=== PATIENT | female | born 1965 | race American Indian/Alaskan Native ===

== ENCOUNTER 2016-10-02 20:20 | Emergency (ER) | payer SELFPAY ==
[2016-10-02 23:05] LABS: Basophils % (Auto) 0.5 % (0.0-1.8); Eosinophils % (Auto) 2.4 % (0.0-4.3); Hematocrit 30.5 % (30.3-42.9); Hemoglobin 9.3 gm/dl (10.1-14.3); Mean Corpuscular HGB Conc 31 % (30-34); Platelet Count 282 K/mm3 (140-440); Red Blood Count 4.55 M/mm3 (3.65-5.03); Red Cell Distribution Width 18.6 % (13.2-15.2); White Blood Count 8.5 K/mm3 (4.5-11.0)
[2016-10-02 23:07] LABS: Mean Corpuscular Hemoglobin 20 pg (28-32); Mean Corpuscular Volume 67 fl (79-97)
[2016-10-02 23:23] LABS: Anion Gap 20 mmol/L; BUN/Creatinine Ratio 15.71; Blood Urea Nitrogen 11 mg/dL (7-17); Calcium 9.1 mg/dL (8.4-10.2); Carbon Dioxide 22 mmol/L (22-30); Chloride 99.2 mmol/L (98-107); Glucose 112 mg/dL (65-100); Potassium 3.9 mmol/L (3.6-5.0); Sodium 137 mmol/L (137-145)
[2016-10-02] MEDS ORDERED: ANTIVERT PO ONE (23:55)
--- NOTE | 2016-10-02 23:55 | Emergency Department Report ---
ED Dizziness HPI - General Chief Complaint: Dizziness Stated Complaint: WEAKNESS Time Seen by Provider: 10/02/16 23:40 Source: patient Mode of arrival: Ambulatory Limitations: No Limitations - History of Present Illness Initial Comments: This is a pleasant 51-year-old female who reports long-standing history of intermittent dizziness. She's been seen by ENT for this. She has had vestibular therapy in the past. She states she's only had minimal improvement with this however. She has had MRI recently done as well for part of this workup. She states that she does fairly well on meclizine. She is requesting more meclizine now. She does report occasional blurring of her vision associated with the dizziness as well. Denies any new trauma. She denies any other focal weakness. States that she feels better lying still. Patient reports also having some increased fatigue over the last several weeks. She thinks her iron is low again. She has been on iron replacement in the past. Severity: moderate Associated Symptoms: denies: chest pain, fever/chills, seizure - Related Data Home Medications Medication Instructions Recorded Confirmed Last Taken traMADol [Ultram 50 MG tab] 25 mg PO PRN PRN 07/10/14 07/10/14 07/10/14 Previous Rx's Medication Instructions Recorded Last Taken Type Lisinopril 10 mg PO QDAY #30 tablet 07/10/14 Unknown Rx Iron,Carbonyl/Ascorbic Acid [Iron 1 each PO DAILY #90 tablet 10/02/16 Unknown Rx 100-Vitamin C Tablet] Meclizine [Antivert] 25 mg PO Q6HR PRN #60 tablet 10/02/16 Unknown Rx Allergies Allergy/AdvReac Type Severity Reaction Status Date / Time oxycodone HCl [From Percocet] Allergy Itching Verified 10/02/16 21:39 ED Review of Systems ROS: Stated complaint: WEAKNESS Other details as noted in HPI Comment: All other systems reviewed and negative Constitutional: denies: chills, fever Eyes: denies: eye pain, eye discharge, vision change ENT: denies: ear pain, throat pain Respiratory: denies: cough, shortness of breath, wheezing Cardiovascular: denies: chest pain, palpitations Endocrine: no symptoms reported Gastrointestinal: denies: abdominal pain, nausea, diarrhea Genitourinary: denies: urgency, dysuria, discharge Musculoskeletal: denies: back pain, joint swelling, arthralgia Skin: denies: rash, lesions Neurological: vertigo. denies: headache, weakness, paresthesias, abnormal gait Psychiatric: denies: anxiety, depression Hematological/Lymphatic: denies: easy bleeding, easy bruising ED Past Medical Hx - Past Medical History Previous Medical History?: Yes Hx Hypertension: Yes Hx GERD: Yes Additional medical history: anemic/ low iron - Surgical History Past Surgical History?: Yes Hx Appendectomy: No Hx Breast Surgery: Yes (cyst removed from left breast) Additional Surgical History: right shoulder - Social History Smoking Status: Never Smoker Substance Use Type: None - Medications Home Medications: Home Medications Medication Instructions Recorded Confirmed Last Taken Type Lisinopril 10 mg PO QDAY #30 tablet 07/10/14 Unknown Rx traMADol [Ultram 50 MG tab] 25 mg PO PRN PRN 07/10/14 07/10/14 07/10/14 History Iron,Carbonyl/Ascorbic Acid [Iron 1 each PO DAILY #90 tablet 10/02/16 Unknown Rx 100-Vitamin C Tablet] Meclizine [Antivert] 25 mg PO Q6HR PRN #60 tablet 10/02/16 Unknown Rx ED Physical Exam - General Limitations: No Limitations General appearance: alert, in no apparent distress - Head Head exam: Present: atraumatic, normocephalic - Eye Eye exam: Present: normal appearance, PERRL, EOMI, nystagmus (left). Absent: scleral icterus - ENT ENT exam: Present: normal exam, normal orophraynx, mucous membranes moist, TM's normal bilaterally, normal external ear exam - Neck Neck exam: Present: normal inspection. Absent: tenderness, lymphadenopathy - Respiratory Respiratory exam: Present: normal lung sounds bilaterally. Absent: respiratory distress, wheezes - Cardiovascular Cardiovascular Exam: Present: regular rate, normal rhythm. Absent: systolic murmur, diastolic murmur, rubs, gallop - GI/Abdominal GI/Abdominal exam: Present: soft, normal bowel sounds. Absent: tenderness, guarding - Extremities Exam Extremities exam: Present: normal inspection. Absent: tenderness, pedal edema, calf tenderness - Back Exam Back exam: Present: normal inspection. Absent: CVA tenderness (R), CVA tenderness (L) - Neurological Exam Neurological exam: Present: alert, oriented X3 - Psychiatric Psychiatric exam: Present: normal affect, normal mood - Skin Skin exam: Present: warm, dry, intact, normal color. Absent: rash ED Course Vital Signs 10/02/16 10/02/16 10/02/16 21:33 23:40 23:45 Temperature 98.2 F Pulse Rate 78 83 Respiratory 18 12 Rate Blood Pressure 147/81 135/82 O2 Sat by Pulse 100 100 100 Oximetry 10/02/16 10/02/16 10/03/16 23:50 23:56 00:05 Temperature Pulse Rate 75 70 Respiratory 18 15 20 Rate Blood Pressure 135/82 135/82 O2 Sat by Pulse 100 99 100 Oximetry - Reevaluation(s) Reevaluation #1: 10/02/16 23:41 ECG at 2143 with normal sinus rhythm at 78 bpm with normal ME and QRS. Normal axis is noted normal QT is noted. There is some mild left atrial enlargement appreciated otherwise is unremarkable ECG. Reevaluation #2: 10/03/16 19:50 Labs are noted here. Anemia is noted. I suspect this is contributing to her fatigue sensation. I did encourage her to get back on her iron supplementation.. Patient is just requesting meclizine at this time to help her feel more comfortable. I do not feel that there is anything more concerning going on at this time. It does appear to be peripheral in nature in regards to her dizziness. We'll treat symptomatically for now. I did encourage her to continue follow up with ENT. I also encouraged follow-up for optometry for a formal eye examination. 10/03/16 19:52 ED Medical Decision Making - Lab Data Result diagrams: 10/02/16 22:45 10/02/16 22:45 Critical care attestation.: If time is entered above; I have spent that time in minutes in the direct care of this critically ill patient, excluding procedure time. ED Disposition Clinical Impression: Benign paroxysmal positional vertigo of left ear Iron deficiency anemia Qualifiers: Iron deficiency anemia type: unspecified iron deficiency Qualified Code(s): D50.9 - Iron deficiency anemia, unspecified Disposition: DISCHARGED TO HOME OR SELFCARE Is pt being admited?: No Does the pt Need Aspirin: No Condition: Stable Instructions: Iron Rich Diet (ED), Iron Deficiency Anemia (ED), Benign Paroxysmal Positional Vertigo (ED) Additional Instructions: Follow with your doctor if not improving. Consider seeing an electric motor assembler whether you need glasses. Consider return to vestibular therapy. Take your iron tabs daily. Prescriptions: Iron,Carbonyl/Ascorbic Acid [Iron 100-Vitamin C Tablet] 1 each PO DAILY #90 tablet Meclizine [Antivert] 25 mg PO Q6HR PRN #60 tablet PRN Reason: Vertigo Referrals: PRIMARY CARE, [Primary Care Provider] - 3-5 Days Time of Disposition: 23:57
[2016-10-03 00:04] VITALS: BP 135/82
== END 2016-10-03 00:24 | disposition home or self-care (01) ==
LOC: ED 20:20
DX: D50.9 Iron deficiency anemia, unspecified (principal); H81.12 Benign paroxysmal vertigo, left ear; I10 Essential (primary) hypertension; K21.9 Gastro-esophageal reflux disease without esophagitis
CPT/HCPCS: 36415; 80048; 84484; 85025; 93005; 93010; 99284

== ENCOUNTER 2018-10-16 14:17 | Emergency (ER) | payer OTHER ==
--- NOTE | 2018-10-16 14:30 | Emergency Department Report ---
Blank Doc - Documentation Documentation: This is a 53-year-old female that presents with HTN. Patient stated she is now on catapres 0.[address] of head has been obtained due to headache with HTN that was done 3 days ago and was normal. This initial assessment/diagnostic orders/clinical plan/treatment(s) is/are subject to change based on patient's health status, clinical progression and re- assessment by fellow clinical providers in the ED. Further treatment and workup at subsequent clinical providers discretion. Patient/guardians urged not to elope from the ED as their condition may be serious if not clinically assessed and managed. Initial orders include: 1- Patient sent to [facility] for further evaluation and treatment 2- labs
[2018-10-16 14:45] LABS: Basophils # (Auto) 0.1 K/mm3 (0.0-0.1); Basophils % (Auto) 0.7 % (0.0-1.8); Eosinophils # (Auto) 0.2 K/mm3 (0.0-0.4); Eosinophils % (Auto) 2.4 % (0.0-4.3); Hematocrit 34.3 % (30.3-42.9); Hemoglobin 10.7 gm/dl (10.1-14.3); Lymphocytes % (Auto) 12.7 % (13.4-35.0); Mean Corpuscular HGB Conc 31 % (30-34); Mean Corpuscular Volume 75 fl (79-97); Monocytes # (Auto) 0.6 K/mm3 (0.0-0.8); Monocytes % (Auto) 8.1 % (0.0-7.3); Platelet Count 253 K/mm3 (140-440); Red Blood Count 4.58 M/mm3 (3.65-5.03); Red Cell Distribution Width 17.1 % (13.2-15.2)
[2018-10-16 15:08] LABS: BUN/Creatinine Ratio 17; Blood Urea Nitrogen 12 mg/dL (7-17); Hemolysis Index 0
[2018-10-16] MEDS ORDERED: NORVASC PO ONE (18:01)
--- NOTE | 2018-10-16 18:03 | Emergency Department Report ---
ED General Adult HPI - General Chief complaint: High BP Stated complaint: BP CHECK Time Seen by Provider: 10/16/18 14:27 Source: patient Mode of arrival: Ambulatory Limitations: No Limitations - History of Present Illness Initial comments: This is a 53-year-old female presents with elevated blood pressure. Past medical history of hypertension, anemia, and GERD. Patient states she went to [facility] on Saturday with the elevated blood pressure. Patient reports the negative CT labs, and EKG. She was started on clonidine. Patient states that only dictate clonidine one blood pressure is 200 over 100s. She had an appointment tomorrow with her primary care provider. She states she is also taking meclizine for vertigo does not improve symptoms. She also reports dizziness today. She denies chest pain, nausea or vomiting, visual changes, radiating pain, or palpitations. Onset/Timin -: days(s) Severity scale (0 -10): 0 Improves with: medication Worsens with: none Associated Symptoms: denies other symptoms Treatments Prior to Arrival: other (prescribed blood pressure medication) - Related Data Home Medications Medication Instructions Recorded Confirmed Last Taken traMADol [Ultram 50 MG tab] 25 mg PO PRN PRN 07/10/14 07/10/14 07/10/14 Previous Rx's Medication Instructions Recorded Last Taken Type Lisinopril 10 mg PO QDAY #30 tablet 07/10/14 Unknown Rx Iron,Carbonyl/Ascorbic Acid [Iron 1 each PO DAILY #90 tablet 10/02/16 Unknown Rx 100-Vitamin C Tablet] Meclizine [Antivert] 25 mg PO Q6HR PRN #60 tablet 10/02/16 Unknown Rx Amlodipine Besylate [Norvasc] 5 mg PO DAILY #30 tablet 10/16/18 Unknown Rx hydroCHLOROthiazide 12.5 mg PO DAILY #30 tablet 10/16/18 Unknown Rx [Hydrochlorothiazide] Allergies Allergy/AdvReac Type Severity Reaction Status Date / Time oxycodone HCl [From Percocet] Allergy Itching Verified 10/02/16 21:39 ED Review of Systems ROS: Stated complaint: BP CHECK Other details as noted in HPI Constitutional: denies: chills, fever Respiratory: denies: cough, shortness of breath, wheezing Cardiovascular: denies: chest pain, palpitations Gastrointestinal: denies: abdominal pain, nausea, diarrhea Skin: denies: rash, lesions Neurological: vertigo. denies: headache, weakness, paresthesias Psychiatric: denies: anxiety, depression ED Past Medical Hx - Past Medical History Previous Medical History?: Yes Hx Hypertension: Yes Hx GERD: Yes Additional medical history: anemic/ low iron, vertigo - Surgical History Past Surgical History?: Yes Hx Appendectomy: No Hx Breast Surgery: Yes (cyst removed from left breast) Additional Surgical History: right shoulder - Social History Smoking Status: Never Smoker Substance Use Type: None - Medications Home Medications: Home Medications Medication Instructions Recorded Confirmed Last Taken Type Lisinopril 10 mg PO QDAY #30 tablet 07/10/14 Unknown Rx traMADol [Ultram 50 MG tab] 25 mg PO PRN PRN 07/10/14 07/10/14 07/10/14 History Iron,Carbonyl/Ascorbic Acid [Iron 1 each PO DAILY #90 tablet 10/02/16 Unknown Rx 100-Vitamin C Tablet] Meclizine [Antivert] 25 mg PO Q6HR PRN #60 tablet 10/02/16 Unknown Rx Amlodipine Besylate [Norvasc] 5 mg PO DAILY #30 tablet 10/16/18 Unknown Rx hydroCHLOROthiazide 12.5 mg PO DAILY #30 tablet 10/16/18 Unknown Rx [Hydrochlorothiazide] ED Physical Exam - General Limitations: No Limitations General appearance: alert, in no apparent distress, obese - ENT ENT exam: Present: mucous membranes moist - Neck Neck exam: Present: normal inspection - Respiratory Respiratory exam: Present: normal lung sounds bilaterally. Absent: respiratory distress - Cardiovascular Cardiovascular Exam: Present: regular rate, normal rhythm. Absent: systolic murmur, diastolic murmur, rubs, gallop - GI/Abdominal GI/Abdominal exam: Present: soft, normal bowel sounds - Neurological Exam Neurological exam: Present: alert, oriented X3 - Psychiatric Psychiatric exam: Present: normal affect, normal mood - Skin Skin exam: Present: warm, dry, intact, normal color. Absent: rash ED Course Vital Signs 10/16/18 10/16/18 14:27 17:33 Temperature 98.3 F 98.5 F Pulse Rate 106 H 94 H Respiratory 18 17 Rate Blood Pressure 193/89 Blood Pressure 191/87 [Left] O2 Sat by Pulse 95 99 Oximetry ED Medical Decision Making - Lab Data Result diagrams: 10/16/18 14:36 10/16/18 14:36 Lab Results 10/16/18 10/16/18 Range/Units 14:36 14:36 WBC 7.6 (4.5-11.0) K/mm3 RBC 4.58 (3.65-5.03) M/mm3 Hgb 10.7 (10.1-14.3) gm/dl Hct 34.3 (30.3-42.9) % MCV 75 L (79-97) fl MCH 23 L (28-32) pg MCHC 31 (30-34) % RDW 17.1 H (13.2-15.2) % Plt Count 253 (140-440) K/mm3 Lymph % (Auto) 12.7 L (13.4-35.0) % Gaston % (Auto) 8.1 H (0.0-7.3) % Eos % (Auto) 2.4 (0.0-4.3) % Baso % (Auto) 0.7 (0.0-1.8) % Lymph # 1.0 L (1.2-5.4) K/mm3 Gaston # 0.6 (0.0-0.8) K/mm3 Eos # 0.2 (0.0-0.4) K/mm3 Baso # 0.1 (0.0-0.1) K/mm3 Seg Neutrophils % 76.1 H (40.0-70.0) % Seg Neutrophils # 5.8 (1.8-7.7) K/mm3 Sodium 142 (137-145) mmol/L Potassium 3.9 (3.6-5.0) mmol/L Chloride 104.3 (98-107) mmol/L Carbon Dioxide 26 (22-30) mmol/L Anion Gap 16 mmol/L BUN 12 (7-17) mg/dL Creatinine 0.7 (0.7-1.2) mg/dL Estimated GFR > 60 ml/min BUN/Creatinine Ratio 17 % Glucose 125 H (65-100) mg/dL Calcium 9.0 (8.4-10.2) mg/dL - Medical Decision Making This is a 53 y.o. female that presents with elevated blood pressure 3 days. History of HTN, GERD, and anemia. Patient off lisinopril for 3 years per PCP. Patient is stable and was examined by me. Obtained BMP & CBC, all unremarkable. Given amlodipine 5 mg po once in ER. Start amlodipine 5 mg and HCTZ 12.5 mg po daily and follow up with PCP. Have scheduled appointment with Dr. Kaur tomorrow. Instructed to keep appointment. Discussed plan with patient and agreed to plan. No further questions noted by the patient. Discharged home in stable condition. Critical care attestation.: If time is entered above; I have spent that time in minutes in the direct care of this critically ill patient, excluding procedure time. ED Disposition Clinical Impression: Hypertension Qualifiers: Hypertension type: essential hypertension Qualified Code(s): I10 - Essential (primary) hypertension Disposition: TO HOME OR SELFCARE Is pt being admited?: No Does the pt Need Aspirin: No Condition: Stable Instructions: Hypertension (ED) Additional Instructions: Moderate caffeine consumption is acceptable. Begin and maintain aerobic exercise, with a goal of at least 30 minutes of moderate intensity, dynamic aerobic exercise (walking, jogging, cycling, or swim santos) 5 days per week to total 150 minutes as tolerated or recommended by a physician. Take medication daily as prescribed. Follow up with Primary Care Provider. Prescriptions: hydroCHLOROthiazide [Hydrochlorothiazide] 12.5 mg PO DAILY #30 tablet Amlodipine Besylate [Norvasc] 5 mg PO DAILY #30 tablet Referrals: JASWINDER VALERA MD [Primary Care Provider] - 3-5 Days DAWSON KAUR MD [Staff Physician] - 3-5 Days Forms: Work/School Release Form(ED) Time of Disposition: 18:09
[2018-10-16 18:31] VITALS: BP 170/89
== END 2018-10-16 18:17 | disposition home or self-care (01) ==
LOC: ED 14:17
DX: I10 Essential (primary) hypertension (principal); K21.9 Gastro-esophageal reflux disease without esophagitis; Z86.2 Personal history of diseases of the blood and blood-forming organs and certain disorders involving the immune mechanism; Z90.49 Acquired absence of other specified parts of digestive tract; Z79.899 Other long term (current) drug therapy; Z88.1 Allergy status to other antibiotic agents
CPT/HCPCS: 36415; 80048; 85025; 99283